=== PATIENT | male | born 1980 | race Caucasian/White ===

== ENCOUNTER 2022-03-04 00:05 | Emergency (ER) | payer SELFPAY ==
[~2022-03-04] VITALS: Ht 180.3 cm; Wt 104.3 kg
[2022-03-04 00:17] VITALS: BP 142/92
--- NOTE | 2022-03-04 02:12 | NUR ---
Dr. Ken examining patient.
[2022-03-04] MEDS ORDERED: HYDROcodone/APAP 10/325 MG 1 TAB TAB PO STA (02:43)
[2022-03-04] MEDS ORDERED: ACET-10509 PO (03:03)
[2022-03-04] MEDS ORDERED: AMOX1TAB8 PO (03:03)
[2022-03-04 03:08] VITALS: BP 138/90
--- NOTE | 2022-03-04 03:08 | NUR ---
Patient discharged with v/s stable. Written and verbal after care instructions given ANIMAL BITE and explained. Patient alert, oriented and verbalized understanding of instructions. Ambulatory with steady gait. All questions addressed prior to discharge. ID band removed. Patient advised to follow up with PMD. Rx of ACETAMINOPHEN AND AMOXICILLIN/POTASSIUM CLAV given.
== END 2022-03-04 03:08 | disposition home or self-care (01) ==
LOC: MED 00:05
DX: S70.371A Other superficial bite of right thigh, initial encounter (principal); Z79.82 Long term (current) use of aspirin; W54.0XXA Bitten by dog, initial encounter; Y93.89 Activity, other specified; Y92.89 Other specified places as the place of occurrence of the external cause; Y99.8 Other external cause status
CPT/HCPCS: 90471; 90715; 99283